=== PATIENT | male | born 1940 | race Caucasian/White ===

== ENCOUNTER 2017-06-24 13:49 | Inpatient (IN) | payer OTHER ==
[~2017-06-24] VITALS: Ht 149.9 cm; Wt 74.8 kg
[~2017-06-24 13:49] MED LIST: CALCIUM; DARVOCET; NAPROXEN
[2017-06-24 13:55] VITALS: BP 95/53
[2017-06-24] MEDS ORDERED: VANCOMYCIN 1,000 MG in DEXTROSE 5% 250 ML IV ONE (14:00)
[2017-06-24] MEDS ORDERED: NACL 0.9% 1,000 ML IV ONE ×3 (14:00→18:25)
[2017-06-24] MEDS ORDERED: LEVOFLOXACIN 500 MG/D5W PREMIX 100 ML IV ONE (14:00)
--- NOTE | 2017-06-24 14:00 | NUR ---
PT AMBULATED TO OF AWAITING OPEN BED; APPLIED O2 VIA NC D/T O2 SATURATION 89% ON ROOM AIR; PT STATES NO PAIN OR SOB AT THIS TIME; ER MD DR. SHAFER NOTIFIED.
[2017-06-24 14:40] LABS: HEMOGLOBIN 14.4 g/dL (12.0-18.0); MEAN CORPUSCULAR HEMOGLOBIN 31 pg (27-31); MEAN CORPUSCULAR HGB CONC 33 g/dL (33-37); MEAN CORPUSCULAR VOLUME 94 fL (80-94); RED BLOOD CELL COUNT(AUTO) 4.67 MIL/uL (4.20-6.10); RED CELL DISTRIBUTION WIDTH 12.8 % (11.6-13.7)
--- NOTE | 2017-06-24 14:43 | NUR ---
77M BIB FRIEND C/O SORE THROAT, COUGH, CHILLS, BODY ACHES X 4 DAYS. PER PT AND FRIEND, PROBLEM WITH BLOOD (PT UNSURE OF CONDITION). PT REPORTS COLD SYMPTOMS AND HAS A MOIST COUGH. NO PHLEGM PRESENT UPON ASSESSMENT. BILATERAL CRACKLES IN LOWER LOBES. FISTULA NOTED ON LEFT FOREARM. WHEN ASKED ABOUT DIALYSIS, PT SAID "YES DIALYSIS". PT IS FLUSHED AND WARM TO THE TOUCH. DENIES CHILLS, N/V/D. PT DENIES PAIN. PT HEART RATE AT 137 ON MONITOR. PT DENIES ABD PAIN. A&O X 4. [facility] INTACT. CMS INTACT. ER MD SHAFER NOTIFIED. SAFETY PRECAUTIONS IN PLACE. PT NEEDS MET AT THIS TIME. WILL CONTINUE TO MONITOR.
--- NOTE | 2017-06-24 14:43 | NUR ---
PT MOVED TO BED 1
[2017-06-24 14:58] LABS: PLATELET COUNT (AUTO) 11 K/uL (140-450)
[2017-06-24 14:59] LABS: LYMPHOCYTES % (MANUAL) 27 % (20-46)
[2017-06-24] MEDS ORDERED: VANCOMYCIN 1,000 MG VIAL ONE (15:01)
[2017-06-24 15:09] LABS: ALBUMIN 3.3 g/dL (3.4-5.0); ANION GAP 14.7 (8-16); ASPARTATE AMINOTRANSFERASE 23 U/L (15-37); CARBON DIOXIDE 24.5 mmol/L (21-32); CHLORIDE 99 mmol/L (98-107); CREATININE 1.2 mg/dL (0.7-1.3); GLUCOSE 157 mg/dL (74-106); POTASSIUM 3.2 mmol/L (3.5-5.1); SODIUM SERUM 135 mmol/L (136-145); TOTAL BILIRUBIN 0.9 mg/dL (0.0-1.0); UREA NITROGEN, BLOOD 12 mg/dL (7-18)
[2017-06-24] MEDS ORDERED: NACL 0.9% 500 ML IV ONE (15:30)
--- NOTE | 2017-06-24 15:32 | NUR ---
JENNY DAUGHTER [phone]
[2017-06-24 15:38] LABS: APPEARANCE,URINE HAZY (CLEAR); BILIRUBIN,URINE NEGATIVE (NEGATIVE); BLOOD, URINE 3+ (NEGATIVE); COLOR,URINE YELLOW (YELLOW); LEUKOCYTE ESTERASE ,URINE NEGATIVE (NEGATIVE); NITRITE, URINE NEGATIVE (NEGATIVE); UGLUCOSE NEGATIVE (NEGATIVE)
[2017-06-24 16:03] LABS: RBC,URINE 20-50 /HPF (0-5); YEAST,URINE Few /HPF (None Seen)
--- NOTE | 2017-06-24 16:16 | NUR ---
Patient being reevaluated by DR SHAFER at bedside.
--- NOTE | 2017-06-24 16:34 | NUR ---
SPOKE TO JENNY. PT DTR. SHE REPORTED THAT PT HAS BEEN TAKING METFORMIN 500 MG QD AND ELIQUIS 5 MG 2 X PER DAY. REPORTS PT HAD KNEE SURGERY. PER DTR, NO FISTULA IN LEFT FOREARM. DOES NOT KNOW PAST MEDICAL DX. ER MD SHAFER NOTIFIED. WILL CONTINUE TO MONITOR.
[2017-06-24] MEDS ORDERED: METF500T PO (16:38)
[2017-06-24] MEDS ORDERED: APIX5TAB PO (16:38)
[2017-06-24] MEDS ORDERED: HYDROcodone/APAP 7.5/325 MG 1 TAB PO PRN (16:55)
[2017-06-24] MEDS ORDERED: ONDANSETRON 4 MG/2 ML VIAL IVP PRN (16:55)
[2017-06-24] MEDS ORDERED: ACETAMINOPHEN 325 MG TAB PO PRN (16:55)
[2017-06-24] MEDS ORDERED: ALBUTEROL SULFATE/IPRATROPIU 3 ML SOL IH PRN (17:00)
--- NOTE | 2017-06-24 17:05 | NUR ---
PT TRANSFERRED TO ICU FROM ER VIA GURNEY. PT IS ALERT AND ORIENTED X 4, ABLE TO MAKE NEEDS KNOWN AND FOLLOWS COMMANDS, NEPALI SPEAKING. PT IS AFEBRILE. NO C/O PAIN OR DISCOMFORT. A. FIB ON MONITOR. S1 +S2 HEARD. PT IS ON O2 AT 3 LPM/NC. NO SOB NOTED. BREATHING EVEN AND UNLABORED. LUNGS SOUND COARSE BILATERALLY. PERIPHERAL IV G 20 TO RIGHT AC ASYMPTOMATIC, PATENT AND INTACT. ABDOMEN ROUND, NONTENDER, NON DISTENDED W/ ACTIVE BOWEL SOUNDS. PT IS CONTINENT BLADDER AND BOWEL. SKIN INTACT, DRY AND WARM. OLD SCAR TO RIGHT KNEE NOTED. NO EDEMA. PULSES PALPABLE TO ALL EXTREMITIES. SCDS IN PLACE FOR VTE PROPHYLAXIS. BED IN LOWEST POSITION AND CALL LIGHT WITHIN REACH. WILL CONTINUE TO MONITOR.
--- NOTE | 2017-06-24 17:10 | NUR ---
Patient will be admitted to care of DR OSBORNE. Admited to TELE. Will go to room 1CU8. Belongings list completed. Report to ANNIE SUH.
[2017-06-24] MEDS ORDERED: DILTIAZEM 30 MG TAB PO ONE (17:15)
--- NOTE | 2017-06-24 17:30 | NUR ---
PT SEEN AND EXAMINED BY DR. CLEVELAND. WILL FOLLOW UP ON ORDERS.
[2017-06-24] MEDS ORDERED: DILTIAZEM 25 MG/5 ML VIAL IVP SCH (17:36)
[2017-06-24] MEDS ORDERED: LABETALOL 100 MG/20 ML VIAL IV SCH (17:40)
[2017-06-24 18:00] VITALS: BP 84/64
--- NOTE | 2017-06-24 18:10 | NUR ---
DR. CLEVELAND IS AWARE OF PT'S LOW BP 84/64. WILL FOLLOW UP ON ORDERS.
[2017-06-24 18:15] LABS: AMYLASE 48 U/L (25-115); CHOL/HDL RATIO 2.5 (1-4.5); HDL CHOLESTEROL 49 mg/dL (40-60); LDL (CALC) 54 mg/dL (60-100); LIPASE 136 U/L (73-393); MAGNESIUM 1.3 mg/dL (1.8-2.4); PHOSPHORUS 2.9 mg/dL (2.5-4.9); THYROID STIMULATING HORMONE 2.04 uIU/mL (0.34-3.74); TRIGLYCERIDES 99 mg/dL (30-150)
--- NOTE | 2017-06-24 18:20 | NUR ---
FAMILY AT BEDSIDE. NO C/O PAIN, DISCOMFORT, NO ACUTE DISTRESS NOTED AT THIS TIME.
[2017-06-24] MEDS: ALBUTEROL SULFATE/IPRATROPIU 3 ML SOL IH SCH (18:52)
[2017-06-24] MEDS ORDERED: methylPREDNISolone SS 125 MG/2 ML VIAL IVP ONE (19:00)
[2017-06-24] MEDS ORDERED: MAG SULF 2000 MG/WATER PREMIX 50 ML IV ONE ×2 (19:05→19:43)
--- NOTE | 2017-06-24 19:29 | NUR ---
REPORT RECEIVED FROM MORNING RN. PT IS A&OX4. ITALIAN SPEAKING. O2 VIA NC @2L/MIN. BILATERAL LUNGS SOUND WITH CRACKLES AND DIMINISHED IN THE LOWER LOBES. RR EVEN AND UNLABORED. BOWEL SOUNDS ACTIVE. RIGHT AC 20G PERIPHERAL IV INTACT AND ASYMPTOMATIC. AFIB ON CONTINUOUS RN SCHOOL. CAP REFILL WITHIN 3 SEC. DENIES CHEST PAIN OR DISCOMFORT. PT CAN MOVE AND REPOSITION WITHOUT DIFFICULTY. URINAL AT BED SIDE. PT WAS EDUCATED W/ THE USE OF THE URINAL AND CALL LIGHT SYSTEM TO CALL THE NURSE FOR ASSISTANCE. AFEBRILE. DENIES PAIN OR DISCOMFORT. CALL LIGHT IN REACH. HOB ELEVATED TO 30 DEGREES. BED KEPT TO THE LOWEST POSITION. WILL CONTINUE TO MONITOR.
[2017-06-24] MEDS: NACL 0.9% 1,000 ML IV SCH (19:30)
--- NOTE | 2017-06-24 19:30 | NUR ---
REPORT GIVEN TO CIGAR PACKER AND GRADER RN FOR CONTINUITY OF CARE. PT IS IN STABLE CONDITION.
[2017-06-24 19:44] LABS: BARBITURATE, URINE NEG. ng/ml (NEG <=200); BENZODIAZEPINE, URINE NEG. ng/mL (NEG <=200); CANNABINOID, URINE NEG. ng/mL (NEG <=50); COCAINE, URINE NEG. ng/mL (NEG <=300); OPIATE, URINE NEG. ng/mL (NEG <=2000); PHENCYCLIDINE SCREEN,URINE NEG. ng/mL (NEG <=25)
--- NOTE | 2017-06-24 19:50 | NUR ---
MG NOTED 1.7. [facility]IGHT [facility] CLOSED AT THIS TIME TO VERIFY. CHARGE AWARE TO OVERWRITE THE MED. MED BEING ADMINISTERED AT THIS TIME.
[2017-06-24 20:00] VITALS: BP 95/82
[2017-06-24] MEDS ORDERED: KCL 20 MEQ/WATER INJ PREMIX 200 ML IV ONE (20:03)
--- NOTE | 2017-06-24 20:03 | NUR ---
NEW PERIPHERAL LINE OBTAINED FROM LEFT HAND 20G. POSITIVE BLOOD RETURN AND FLUSHES WELL. K RIDER HAS STARTED TO LEFT HAND IV ORDERED. [facility]IGHT [facility]ARM[facility]Y NOT AVAILABLE TO VERIFY. CHARGE NURSE MADE AWARE TO OVERWRITE. K RIDER BEING ADMINISTERED.
--- NOTE | 2017-06-24 20:11 | NUR ---
1919 SPUTUM WAS UPTAINED AND SENT TO LAB
--- NOTE | 2017-06-24 20:12 | NUR ---
DR. ABREU IN TO SEE PT. UPDATED WITH HIM ABOUT PT'S CONDITION INCLUDING BP=95/82. DR. ABREU MADE AWARE OF K RIDER AND MG IV ARE BEING ADMINISTERED. PT IS A&O AND ABLE TO FOLLOW COMMANDS. DR. ABREU SAID TO CONTINUE TO MONITOR.
[2017-06-24] MEDS: CLINDAMYCIN 600 MG in DEXTROSE 5% 50 ML IV SCH (20:23)
[2017-06-24] MEDS: DOCUSATE SODIUM 100 MG GELCAP PO SCH (20:24)
--- NOTE | 2017-06-24 20:35 | NUR ---
DR. ABREU MADE AWARE OF LOPRESSOR NOT GIVEN DUE TO LOW BP.
--- NOTE | 2017-06-24 20:40 | NUR ---
2 RT'S AT BED SIDE FOR ABG SAMPLE. PT IN BED WITH LOWEST POSITION. CALL LIGHT IN REACH. HOB ELEVATED 30 DEGREES. NO ACUTE DISTRESS NOTED.
--- NOTE | 2017-06-24 20:50 | NUR ---
HEARD A COMMOTION FROM ICU BED 8. WENT IMMEDIATELY TO THE ROOM AND SAW ONE RT AT BED SIDE AND PT SITTING ON HIS BOTTOM AGAINST THE WALL ON THE RIGHT SIDE OF THE BED, FACING THE DOOR. IV POLE LYING ACROSS ON THE BED. RT STANDING NEXT TO THE PT UPON ENTERING THE ROOM. RIGHT SIDE OF THE IV, HUB FROM ONE OF THE Y TUBINGS DISCONNECTED AND BLOOD OOZING OUT OF THE LINE. IMMEDIATELY KINKED THE LINE. FLUSHED WITH NS AND CLOSE THE LINE. RIGHT AC IV SITE INTACT. LEFT HAND IV SITE INTACT. RT STATED THAT HE WAS TRYING TO OBTAIN ABG AND THE PT WANTED TO USE THE URINAL. RT FURTHER STATED THAT PT WENT TO THE EDGE OF THE BED AND TRIED TO STAND UP BUT SLED DOWN FROM THE BED AND SAT ON THE BOTTOM. PT DENIES ANY PAIN AND DENIES HITTING HIS HEAD. NEURO CHECK DONE AND NO CHANGE NOTED. PT ABLE TO MOVE ALL EXTREMITIES WITHOUT DIFFICULTY. RIGHT UPPER LATERAL THIGH AREA NOTED WITH SMALL ROUND BUMP AROUND 2X2. SKIN INTACT. PT DOES NOT REMEMBER HITTING IT ANYWHERE. NO OPEN AREA NOTED. VS STABLE. WILL CONTINUE TO MONITOR.
[2017-06-24 20:53] VITALS: BP 109/80
[2017-06-24 20:55] VITALS: BP 104/80
--- NOTE | 2017-06-24 20:55 | NUR ---
DR. ABREU MADE AWARE OF FALL INCIDENT. DR. ABREU WILL COME AND EVALUATE THE PT.
[2017-06-24] MEDS ORDERED: METOPROLOL 25 MG TAB PO SCH (21:00)
[2017-06-24] MEDS ORDERED: NON-FORMULARY ITEM (Apixaban (Eliquis) 5 MG) PO SCH (21:00)
[2017-06-24] MEDS ORDERED: APIXABAN 2.5 MG TAB PO SCH (21:00)
[2017-06-24] MEDS ORDERED: POTASSIUM CHLORIDE 20% 40 MEQ/15 ML UDC PO SCH (21:00)
--- NOTE | 2017-06-24 21:40 | NUR ---
DR. ABREU IN TO EVALUATE PT S/P FALL AT THIS TIME. INFORMED DR. ABREU OF K RIDER ORDER NOT IN BUT INSTEAD KCL PO IS SHOWING. DR. ABREU SAID K RIDER ORDER IS THE RIGHT ONE AND WILL DC THE PO ORDER. DR. ABREU MADE AWARE OF K-RIDER IV RUNNING.
[2017-06-24 22:00] VITALS: BP 99/82
[2017-06-24] MEDS ORDERED: KCL 20 MEQ/WATER INJ PREMIX 200 ML IV SCH (22:00)
--- NOTE | 2017-06-24 23:10 | NUR ---
X RAY AT BED SIDE.
[2017-06-25] VITALS (9 sets, daily range): BP systolic 94–119; BP diastolic 50–77
--- NOTE | 2017-06-25 01:08 | NUR ---
PT SLEEPING AT THIS TIME. VS STABLE. ALL SAFETY PRECAUTIONS ARE IN PLACE.
--- NOTE | 2017-06-25 03:17 | NUR ---
PT DENIES ANY PAIN OR DISCOMFORT. VS STABLE. AFIB ON CONTINUOS CAR ATTENDANT. BED KEPT TO THE LOWEST. CALL LIGHT IN REACH. HOB ELEVATED TO 30 DEGREES. WILL CONTINUE TO MONITOR.
[2017-06-25] MEDS: CLINDAMYCIN 600 MG in DEXTROSE 5% 50 ML IV SCH ×3 (04:12→20:41)
--- NOTE | 2017-06-25 05:00 | NUR ---
PT SLEEPING. NO S/SX OF DISTRESS NOTED. WILL CONTINUE TO MONITOR.
[2017-06-25] MEDS ORDERED: LEVOFLOXACIN 750 MG/D5W PREMIX 150 ML IV ONE (05:30)
[2017-06-25] MEDS: LEVOFLOXACIN 750 MG/D5W PREMIX 150 ML IV SCH (05:35)
--- NOTE | 2017-06-25 06:25 | NUR ---
ASSISTED WITH MORNING CARE WITH STAND BY ASSIST. PT DENIES ANY PAIN OR DISCOMFORT. VS STABLE. WILL CONTINUE TO MONITOR.
--- NOTE | 2017-06-25 07:23 | NUR ---
REPORT GIVEN TO MORNING NURSEGELA RN FOR CONTINUITY OF CARE. VS STABLE. ALL SAFETY PRECAUTIONS ARE IN PLACE.
[2017-06-25] MEDS: ALBUTEROL SULFATE/IPRATROPIU 3 ML SOL IH SCH ×3 (07:33→19:25)
[2017-06-25 07:34] LABS: BASOPHILS # (AUTO) 0.1 K/uL (0.00-0.22); BASOPHILS % (AUTO) 2.4 % (0.0-2.0); EOSINOPHILS # (AUTO) 0.1 K/uL (0-0.4); EOSINOPHILS % (AUTO) 1.7 % (0.0-4.0); HEMATOCRIT 36.3 % (36-52); LYMPHOCYTES # (AUTO) 0.9 K/uL (2.0-11.5); LYMPHOCYTES % (AUTO) 14.4 % (20.5-51.1); MEAN CORPUSCULAR HEMOGLOBIN 32 pg (27-31); MEAN CORPUSCULAR HGB CONC 33 g/dL (33-37); MEAN CORPUSCULAR VOLUME 95 fL (80-94); MONOCYTES # (AUTO) 0.2 K/uL (0.8-1.0); NEUTROPHILS # (AUTO) 4.7 K/uL (1.8-7.7); NEUTROPHILS % (AUTO) 78.5 % (42.2-75.2); RED CELL DISTRIBUTION WIDTH 13.2 % (11.6-13.7)
[2017-06-25 07:41] LABS: PLATELET COUNT (AUTO) 10 K/uL (140-450)
--- NOTE | 2017-06-25 08:00 | NUR ---
Patient is awake and alert, oriented x 4. He is English speaking, and does understand some Sinhala. Atrial fib on monitor, HR 110 apical pulse. He has a small hematoma palpable, no other skin breakdown. No co pain. Damian Ortiz RN
[2017-06-25 08:37] LABS: ANION GAP 14.9 (8-16); CARBON DIOXIDE 21.9 mmol/L (21-32); CHLORIDE 107 mmol/L (98-107); CREATININE 0.7 mg/dL (0.7-1.3); GLUCOSE 157 mg/dL (74-106); POTASSIUM 3.8 mmol/L (3.5-5.1); SODIUM SERUM 140 mmol/L (136-145); UREA NITROGEN, BLOOD 10 mg/dL (7-18)
[2017-06-25 08:50] LABS: PHOSPHORUS 2.8 mg/dL (2.5-4.9)
[2017-06-25] MEDS: LACTOBACILLUS RHAMNOSUS GG 1 EACH CAP PO SCH (09:04)
[2017-06-25] MEDS: DOCUSATE SODIUM 100 MG GELCAP PO SCH ×2 (09:05→20:41)
[2017-06-25] MEDS: NACL 0.9% 1,000 ML IV SCH ×2 (09:07→19:50)
--- NOTE | 2017-06-25 09:30 | NUR ---
Patient platlet level low, and he will be receiving blood-platlets. Did explain the procedure to patient with Ukrainian speaking phlebotimist at bedside. Patient understands information received, however wants to confer with when she comes before consent obtained. Damian Ortiz RN
--- NOTE | 2017-06-25 09:50 | NUR ---
RT RILEY NOTIFIED OF NEED FOR ANOTHER SPUTUM SPECIMEN FOR CULTURE.
[2017-06-25] MEDS: DILTIAZEM 30 MG TAB PO SCH ×2 (10:33→20:42)
--- NOTE | 2017-06-25 13:18 | NUR ---
TOLERATED INCENTIVE SPIROMETRY THERAPY WELL WITHOUT ADVERSE REACTIONS NOTED ENCOURAGED PATIENT WITH ACKNOWLEDGEMENT TO USE EVERY 1-2 HOURS WHILE AWAKE
[2017-06-25] MEDS: methylPREDNISolone SS 125 MG/2 ML VIAL IVP SCH ×2 (13:39→20:42)
--- NOTE | 2017-06-25 15:28 | NUR ---
CM NOTE INITIAL REVIEW FAXED TO [facility] / FAX# [phone], C: [phone]
--- NOTE | 2017-06-25 15:52 | NUR ---
PLATELET PHERESIS STARTED AT 60 ML/HR X 15 MIN. VIA RT AC IV SITE. FOLLOWED BY 150 ML/HR ( TO INFUSE OVER 1 HR).
--- NOTE | 2017-06-25 17:05 | NUR ---
PLATELET TRANSFUSED WITHOUT UNTOWARD REACTION.
--- NOTE | 2017-06-25 17:30 | NUR ---
at bedside visiting with patient, and giving privacy for family to visit. Patient with no co pain. Patient is voiding. He can reposition himself in bed. Damian Ortiz RN
[2017-06-25 19:14] LABS: BASOPHILS # (AUTO) 0.1 K/uL (0.00-0.22); BASOPHILS % (AUTO) 1.3 % (0.0-2.0); EOSINOPHILS # (AUTO) 0.1 K/uL (0-0.4); EOSINOPHILS % (AUTO) 0.7 % (0.0-4.0); HEMATOCRIT 33.8 % (36-52); HEMOGLOBIN 11.2 g/dL (12.0-18.0); LYMPHOCYTES # (AUTO) 0.5 K/uL (2.0-11.5); LYMPHOCYTES % (AUTO) 5.3 % (20.5-51.1); MEAN CORPUSCULAR HEMOGLOBIN 31 pg (27-31); MEAN CORPUSCULAR HGB CONC 33 g/dL (33-37); MEAN CORPUSCULAR VOLUME 94.8 fL (80-94); MONOCYTES # (AUTO) 0.4 K/uL (0.8-1.0); MONOCYTES % (AUTO) 3.8 % (1.7-9.3); NEUTROPHILS # (AUTO) 8.2 K/uL (1.8-7.7); NEUTROPHILS % (AUTO) 88.9 % (42.2-75.2); PLATELET COUNT (AUTO) 51 K/uL (140-450); RED BLOOD CELL COUNT(AUTO) 3.57 MIL/uL (4.20-6.10); RED CELL DISTRIBUTION WIDTH 12.9 % (11.6-13.7); WHITE BLOOD COUNT (AUTO) 9.3 K/uL (4.8-10.8)
--- NOTE | 2017-06-25 19:30 | NUR ---
RECEIVED REPORT FROM ANNIE LANCE FOR CONTINUITY OF CARE. VS STABLE AT THIS TIME. PT AWAKE, ALERT AND ORIENTED. ABLE TO MAKE NEEDS KNOWN. ONLY SPEAKS THAI. PT AFEBRILE. ABLE TO FOLLOW COMMANDS. S1+S2 HEARD. PULSES ARE PALPABLE IN ALL EXTREMITIES. PT ON SEEING EYE DOG TRAINER. ATRIAL FIBRILLATION RHYTHM. LUNG SOUNDS COARSE. PT DENIES ANY DIFFICULTY IN BREATHING. PT ON OXYGEN AT 2L/MIN VIA NC. ABDOMEN ROUND, SOFT AND NONDISTENDED. PT DENIES ANY DIFFICULTY SWALLOWING. SCD IN PLACE. PT HAS PERIPHERAL IV ON LEFT HAND 20G AND RIGHT AC 20G. LINES ARE PATENT, INTACT,AND ASYMPTOMATIC. PT ABLE TO USE URINAL. BED AT LOW POSSIBLE POSITION. ALL SAFETY PRECAUTIONS ARE IN PLACE. CALL LIGHT WITHIN REACH. WILL CONTINUE TO MONITOR PT.
--- NOTE | 2017-06-25 19:37 | NUR ---
RECEIVED PT ON ROOM AIR SP02 @ 97%. HHN TX TOLERATED. LEFT PT ON ROOM AIR PT'S SP02 IS 97%
--- NOTE | 2017-06-25 19:40 | NUR ---
INFORMED PT THAT WE NEED ANOTHER SPUTUM SAMPLE. PT FULLY UNDERSTANDS. TRANSLATED BY RT ALFARO. CUP LEFT AT BEDSIDE. RN AWARE.
--- NOTE | 2017-06-25 22:34 | NUR ---
DR. ANTHONY AT BEDSIDE TO SEE PT. PER DR. ANTHONY REHECK PLATELETS IN THE AM.
[2017-06-26] VITALS: BP 123/63
--- NOTE | 2017-06-26 01:34 | NUR ---
VS STABLE AT THIS TIME. CURRENTLY NO CHANGE IN CONDITION. PT SLEEPING. PT DOES NOT APPEAR TO BE IN ANY PAIN OR IN ANY SIGNS OF DISTRESS. PT HAS URINAL AT BEDSIDE. PT USES INCENTIVE SPIROMETER WHEN AWAKE. PT AFIB ON MONITOR. WILL CONTINUE TO MONITOR PT.
--- NOTE | 2017-06-26 02:40 | NUR ---
PT CURRENTLY ASLEEP. HAS AN ORDER FOR CT SCAN, WILL BRING PT FOR CT SCAN BEFORE END OF SHIFT. RADIOLOGY DEPARTMENT AWARE.
--- NOTE | 2017-06-26 03:45 | NUR ---
PT SHOWING THAT HIS CELLPHONE'S SCREEN IS BROKEN. DID NOT HEARD OR SAW ANYTHING THAT CONTRIBUTED TO IT HAPPENING.
[2017-06-26 04:00] VITALS: BP 113/80
--- NOTE | 2017-06-26 04:45 | NUR ---
TAKEN PT TO RADIOLOGY DEPARTMENT FOR CT SCAN. PT TOLERATED BEING TRANSPORTED WELL. NO SIGNS OF DISTRESS NOTED. PT STATES THAT HE IS FEEDING GOOD. NO C/O PAIN OR ANY DISCOMFORTS. WILL CONTINUE TO MONITOR PT.
[2017-06-26] MEDS: CLINDAMYCIN 600 MG in DEXTROSE 5% 50 ML IV SCH ×3 (05:47→22:05)
[2017-06-26] MEDS: methylPREDNISolone SS 125 MG/2 ML VIAL IVP SCH (05:47)
[2017-06-26] MEDS: LEVOFLOXACIN 750 MG/D5W PREMIX 150 ML IV SCH (06:36)
[2017-06-26] MEDS: ALBUTEROL SULFATE/IPRATROPIU 3 ML SOL IH SCH ×3 (07:05→18:58)
--- NOTE | 2017-06-26 07:07 | NUR ---
REPORT GIVEN TO ANNIE ANGELO FOR CONTINUITY OF CARE. PT IN STABLE CONDITION AT THIS TIME.
--- NOTE | 2017-06-26 07:09 | NUR ---
RECEIVED REPORT FROM MOTEL FRONT DESK CLERK RNCANDELARIO FOR CONTINUITY OF CARE. PATIENT IS AAOX4, ABLE TO FOLLOW COMMANDS AND MAKES NEEDS KNOWN. PATIENT IS OBSERVED RESTING AT THIS TIME, SKIN IS WARM AND DRY, HE HAS PERIPHERAL SITE TO LEFT HAND AND RIGHT AC, BOTH ASYMPTOMATIC, INTACT AND PATENT. PATIENT HAS O2 NASAL CANNULA AT 2L, LUNG SOUNDS ARE COARSE. AFIB ON MONITOR, CAP REFILL LESS THAN 3 SECS. CALL LIGHT WITHIN REACH, HOB IS ELEVATED TO 30 DEGREES IN LOW POSITION. NO SIGNS OF DISTRESS NOTED. WILL MONITOR CLOSELY.
[2017-06-26 08:00] VITALS: BP 113/80
--- NOTE | 2017-06-26 08:04 | NUR ---
[facility] PHYSICIANS AND DR. HAIRSTON AT BEDSIDE, UPDATED ON PATIENT'S CONDITION. WILL FOLLOW UP ON ANY ORDERS.
[2017-06-26] MEDS: DOCUSATE SODIUM 100 MG GELCAP PO SCH ×2 (08:27→22:07)
[2017-06-26] MEDS: DILTIAZEM 30 MG TAB PO SCH ×2 (08:27→22:07)
[2017-06-26] MEDS: LACTOBACILLUS RHAMNOSUS GG 1 EACH CAP PO SCH (08:27)
[2017-06-26 08:30] LABS: BASOPHILS # (AUTO) 0.2 K/uL (0.00-0.22); BASOPHILS % (AUTO) 1.5 % (0.0-2.0); EOSINOPHILS % (AUTO) 0.1 % (0.0-4.0); HEMATOCRIT 36.9 % (36-52); HEMOGLOBIN 12.3 g/dL (12.0-18.0); LYMPHOCYTES # (AUTO) 1.2 K/uL (2.0-11.5); LYMPHOCYTES % (AUTO) 10.4 % (20.5-51.1); MEAN CORPUSCULAR HEMOGLOBIN 32 pg (27-31); MEAN CORPUSCULAR HGB CONC 33 g/dL (33-37); MEAN CORPUSCULAR VOLUME 95.2 fL (80-94); MONOCYTES # (AUTO) 0.3 K/uL (0.8-1.0); MONOCYTES % (AUTO) 2.8 % (1.7-9.3); NEUTROPHILS # (AUTO) 9.9 K/uL (1.8-7.7); NEUTROPHILS % (AUTO) 85.2 % (42.2-75.2); PLATELET COUNT (AUTO) 58 K/uL (140-450); RED BLOOD CELL COUNT(AUTO) 3.87 MIL/uL (4.20-6.10); WHITE BLOOD COUNT (AUTO) 11.6 K/uL (4.8-10.8)
[2017-06-26 08:59] LABS: ANION GAP 15.6 (8-16); CARBON DIOXIDE 23.5 mmol/L (21-32); CHLORIDE 104 mmol/L (98-107); CREATININE 0.8 mg/dL (0.7-1.3); GLUCOSE 196 mg/dL (74-106); POTASSIUM 3.1 mmol/L (3.5-5.1); SODIUM SERUM 140 mmol/L (136-145); UREA NITROGEN, BLOOD 13 mg/dL (7-18)
[2017-06-26 09:03] LABS: MAGNESIUM 1.8 mg/dL (1.8-2.4)
--- NOTE | 2017-06-26 09:23 | NUR ---
FAXED CONCURRENT REVIEW TO [phone] JENNIFER [phone].
[2017-06-26 10:06] LABS: PHOSPHORUS 2.4 mg/dL (2.5-4.9)
--- NOTE | 2017-06-26 11:09 | NUR ---
GAVE REPORT TO [facility] RNGUY FOR CONTINUITY OF CARE.
--- NOTE | 2017-06-26 11:10 | NUR ---
RECEIVED REPORT FROM ICU NURSE. PATIENT ABLE TO AMBULATE FROM WHEELCHAIR TO [facility] BED WITH ASSISTANCE AND SUPERVISION. NO DISTRESS NOTED. DENIES ANY PAIN AT THIS TIME. RESPIRATIONS EVEN, UNLABORED, ON O2 2L/MIN VIA NC. AAOX4, CALM, COOPERATIVE, SKIN COLOR APPROPRIATE TO ETHNICITY, WARM TO TOUCH. SKIN INTACT. LUNGS WHEEZING ON ALL LOBES. ABDOMEN SOFT, NON-DISTENDED. REVIEWED PLAN OF CARE WITH PATIENT. PATIENT VERBALIZED UNDERSTANDING. SAFETY MEASURES IN PLACE, CALL LIGHT WITHIN REACH, FALL PREVENTIONS IN PLACE. WILL CONTINUE TO MONITOR.
[2017-06-26 11:30] VITALS: BP 101/67
[2017-06-26] MEDS ORDERED: POTASSIUM CHLORIDE 40 MEQ, LIDOCAINE 1% 25 MG in NACL 0.9% 250 ML IV SCH (13:45)
[2017-06-26] MEDS: methylPREDNISolone SS 40 MG/ML VIAL IVP SCH ×2 (13:54→22:06)
[2017-06-26] MEDS: NACL 0.9% 1,000 ML IV SCH ×3 (13:54→20:50)
--- NOTE | 2017-06-26 14:00 | NUR ---
PATIENT SITTING IN BED TALKING WITH FAMILY MEMBERS AT BEDSIDE. NO DISTRESS NOTED. DENIES ANY PAIN. SCHEDULED MEDICATIONS DUE GIVEN. SAFETY MEASURES IN PLACE, CALL LIGHT WITHIN REACH, FALL PRECAUTIONS IN PLACE, WILL CONTINUE TO MONITOR.
--- NOTE | 2017-06-26 14:11 | NUR ---
06/26/2017 RD INITIAL ASSESSMENT COMPLETED PLEASE REFER TO NUTRITION ASSESSMENT UNDER CARE ACTIVITY FOR ESTIMATED NUTRITIONAL NEEDS. RECOMMENDED CHANGE IN DIET TO 60 GMS CCHO. ENCOURAGE INCREASED PO INTAKE TOLERATED. RD TO FOLLOW-UP IN 3-5 DAYS PATIENT IS MODERATE RISK. DIPAK YAN, RD
[2017-06-26 16:00] VITALS: BP 95/68
--- NOTE | 2017-06-26 16:06 | NUR ---
PATIENT LYING DOWN IN BED SLEEPING, AROUSABLE BY VOICE. NO DISTRESS NOTED. DENIES ANY PAIN AT THIS TIME. RESPIRATIONS EVEN, UNLABORED, ON ROOM AIR. SAFETY MEASURES IN PLACE, CALL LIGHT WITHIN REACH. WILL CONTINUE TO MONITOR.
--- NOTE | 2017-06-26 17:46 | NUR ---
PATIENT SITTING IN BED WATCHING TV. NO DISTRESS NOTED. DENIES ANY PAIN AT THIS TIME. CONDITION UNCHANGED. RESPIRATORY THERPAIST CHANGED O2 FROM 2L/MIN TO 1L/MIN VIA NC. O2 SAT IS 95% WITH 1L/MIN VIA NC. SAFETY MEASURES IN PLACE, CALL LIGHT WITHIN REACH. WILL CONTINUE TO MONITOR.
--- NOTE | 2017-06-26 19:30 | NUR ---
GAVE REPORT TO SILVER HOLLOWARE ASSEMBLER NURSE FOR CONTINUITY OF CARE. PATIENT IN STABLE CONDITION.
--- NOTE | 2017-06-26 19:32 | NUR ---
RECEIVED PT FROM GUY VALENCIA PT IS AAOX4 AMBULATORY ON 02 2 LTS VIA NC NOT SOB NOTED IV ON LEFT HAND INFUSING WELL RT AC HL PATENT ON TELEMETRY CONTROLLED AFIB INITIAL ASSESSMENT DONE
[2017-06-26 20:00] VITALS: BP 131/88
--- NOTE | 2017-06-26 22:00 | NUR ---
PT RESTING ON BED NOT DISTRESS NOTED IV ON LEFT HAND INFUSING WELL ON TELEMETRY CONTROLLED AFIB REPOSITIONED
[2017-06-26] MEDS: SODIUM PHOS / POTASSIUM PHOS 1 PKT PDR PO SCH (22:08)
[2017-06-27] VITALS: BP 100/76
--- NOTE | 2017-06-27 01:30 | NUR ---
PT VOIDING WELL GETTING SLEEP ON TELE CONTROLLED AFIB DENIES ANY PAIN NOT SOB NOTED
[2017-06-27 04:00] VITALS: BP 114/85
--- NOTE | 2017-06-27 04:46 | NUR ---
PTSLEEPING WELL NOT DISTRESS NOTE ON TELEMETRY CONTROLLED AFIB ON 05 08 LTS VIA NC
[2017-06-27] MEDS: methylPREDNISolone SS 40 MG/ML VIAL IVP SCH ×2 (05:09→13:27)
[2017-06-27] MEDS: CLINDAMYCIN 600 MG in DEXTROSE 5% 50 ML IV SCH ×2 (05:10→13:27)
[2017-06-27] MEDS: LEVOFLOXACIN 750 MG/D5W PREMIX 150 ML IV SCH (05:40)
[2017-06-27] MEDS ORDERED: NACL 0.9% 1,000 ML IV ONE ×2 (05:55)
--- NOTE | 2017-06-27 06:24 | NUR ---
PT IS ASSISTED TO THE RESTROOMVOIDING WELL AND HAD ONE BM ,IV N LE HAND INFUSING WELL LEVAQUIN ON TELEMETRY CONTROLLED AFIB
[2017-06-27] MEDS: ALBUTEROL SULFATE/IPRATROPIU 3 ML SOL IH SCH ×2 (06:55→13:09)
--- NOTE | 2017-06-27 07:12 | NUR ---
RECEIVED REPORT FROM K 9 POLICE OFFICER RN. PATIENT IS AAOX4, NO SIGNS AND SYMPTOMS OF ACUTE RESPIRATORY DISTRESS NOTED AT THIS TIME. CURRENTLY RECEIVING BREATHING TREATMENT. HAS IV TO THE LEFT HAND 20G, INFUSING NS AT 80 ML/HR. INFUSING WELL. HAS IV TO RIGHT AC 20G, HEP LOCK AT THIS TIME. PATIENT REQUIRES ASSISTANCE TO AMBULATE TO THE RESTROOM. DISCUSSED PLAN OF CARE WITH PATIENT AND HE VERBALIZED UNDERSTANDING. BED IN LOWEST POSITION, SIDE RIALS UP X2, CALL LIGHT WITHIN REACH. WILL CONTINUE TO MONITOR.
[2017-06-27 07:25] LABS: BASOPHILS # (AUTO) 0.2 K/uL (0.00-0.22); EOSINOPHILS % (AUTO) 0.2 % (0.0-4.0); HEMATOCRIT 34.1 % (36-52); HEMOGLOBIN 11.6 g/dL (12.0-18.0); LYMPHOCYTES # (AUTO) 1.2 K/uL (2.0-11.5); LYMPHOCYTES % (AUTO) 12.7 % (20.5-51.1); MEAN CORPUSCULAR HEMOGLOBIN 32 pg (27-31); MEAN CORPUSCULAR HGB CONC 34 g/dL (33-37); MEAN CORPUSCULAR VOLUME 94.5 fL (80-94); MONOCYTES # (AUTO) 0.4 K/uL (0.8-1.0); MONOCYTES % (AUTO) 4.1 % (1.7-9.3); NEUTROPHILS # (AUTO) 7.4 K/uL (1.8-7.7); RED BLOOD CELL COUNT(AUTO) 3.61 MIL/uL (4.20-6.10); RED CELL DISTRIBUTION WIDTH 13.1 % (11.6-13.7); WHITE BLOOD COUNT (AUTO) 9.2 K/uL (4.8-10.8)
[2017-06-27 07:46] LABS: MAGNESIUM 1.8 mg/dL (1.8-2.4); PHOSPHORUS 3.4 mg/dL (2.5-4.9)
[2017-06-27 08:00] VITALS: BP 130/76
[2017-06-27 08:40] LABS: ANION GAP 14.2 (8-16); CARBON DIOXIDE 24.1 mmol/L (21-32); CHLORIDE 107 mmol/L (98-107); CREATININE 0.8 mg/dL (0.7-1.3); GLUCOSE 152 mg/dL (74-106); POTASSIUM 3.3 mmol/L (3.5-5.1); SODIUM SERUM 142 mmol/L (136-145); UREA NITROGEN, BLOOD 16 mg/dL (7-18)
[2017-06-27] MEDS: LACTOBACILLUS RHAMNOSUS GG 1 EACH CAP PO SCH (09:13)
[2017-06-27] MEDS: SODIUM PHOS / POTASSIUM PHOS 1 PKT PDR PO SCH (09:13)
[2017-06-27] MEDS: DILTIAZEM 30 MG TAB PO SCH (09:14)
[2017-06-27] MEDS: DOCUSATE SODIUM 100 MG GELCAP PO SCH (09:14)
--- NOTE | 2017-06-27 10:00 | NUR ---
PATIENT INFORMED ME THAT ONE OF THE ER DOCTORS ACCIDENTALLY DROPPED HIS CELLPHONE THAT WAS PLACED ON A BEDSIDE TABLE IN THE ER AND THE SCREEN CRACKED.
[2017-06-27 10:42] LABS: PLATELET COUNT (AUTO) 70 K/uL (140-450)
[2017-06-27] MEDS ORDERED: OSC500 PO (11:30)
[2017-06-27] MEDS ORDERED: CAR30 PO (11:30)
[2017-06-27] MEDS ORDERED: ASCO500T45 PO (11:30)
[2017-06-27] MEDS ORDERED: FERR325E14 PO (11:30)
[2017-06-27] MEDS ORDERED: LACT10CA PO (11:30)
[2017-06-27] MEDS ORDERED: CLIN300C2 PO (11:30)
[2017-06-27] MEDS ORDERED: LEVO750T2 PO (11:30)
[2017-06-27] MEDS ORDERED: POTASSIUM CHLORIDE 10 MEQ TABER PO SCH (11:47)
[2017-06-27 12:00] VITALS: BP 128/81
--- NOTE | 2017-06-27 13:31 | NUR ---
PLACED PT ON ROOM AIR SPO2 .97 RN AWARE
--- NOTE | 2017-06-27 15:50 | NUR ---
DISCHARGE ORDER IS IN PLACE. PATIENT IS AAOX4, NO SIGNS AND SYMPTOMS OF ACUTE DISTRESS NOTED AT THIS TIME. GAVE PATIENT INSTRUCTIONS ON DISCHARGE MEDICATIONS, TO MAKE AN APPOINTMENT WITH THE [facility] IN 3-5 DAYS. TO SEEK EMERGENCY MEDICAL ATTENTION FOR S/S OF DISTRESS, OR FEVER. PATIENT VERBALIZED UNDERSTANDING. IV DISCONTINUED AT THIS TIME, IV REMOVED. CATHETER INTACT. ID BANDS REMOVED. ALL BELONGINGS WITH THE PATIENT. WILL WALK OUT WITH HIM.
== END 2017-06-27 15:40 | disposition home or self-care (01) | DRG 871 ==
LOC: MED 13:49 → MIC 16:20 → MTU 06-26 10:57
PROVIDERS: ADMIT Student in an Organized Health Care Education/Training Program; ATTEND Student in an Organized Health Care Education/Training Program
PROC: 30233R1 Transfusion of Nonautologous Platelets into Peripheral Vein, Percutaneous Approach (ICD-10-PCS; principal; 2017-06-25)
DX: A41.9 Sepsis, unspecified organism (principal); J69.0 Pneumonitis due to inhalation of food and vomit; J96.21 Acute and chronic respiratory failure with hypoxia; N17.0 Acute kidney failure with tubular necrosis; J84.9 Interstitial pulmonary disease, unspecified; E11.51 Type 2 diabetes mellitus with diabetic peripheral angiopathy without gangrene; D68.59 Other primary thrombophilia; N39.0 Urinary tract infection, site not specified; E11.69 Type 2 diabetes mellitus with other specified complication; D69.6 Thrombocytopenia, unspecified; E11.65 Type 2 diabetes mellitus with hyperglycemia; E83.42 Hypomagnesemia; I48.2 Chronic atrial fibrillation; R65.20 Severe sepsis without septic shock; E87.6 Hypokalemia; E78.5 Hyperlipidemia, unspecified; I10 Essential (primary) hypertension; F17.210 Nicotine dependence, cigarettes, uncomplicated; E66.9 Obesity, unspecified; I70.202 Unspecified atherosclerosis of native arteries of extremities, left leg; Z68.33 Body mass index [BMI] 33.0-33.9, adult
CPT/HCPCS: 36415; 36600; 71045; 71250; 74150; 80048; 80053; 80305; 81001; 82140; 82150; 82803; 83036; 83605; 83690; 83735; 83880; 84100; 84439; 84443; 84484; 85025; 85610; 85730; 86900; 86901; 87040; 87070; 87081; 87086; 87205; 87804; 89220; 93925; 93970; 94640; 96365; 99291; J1956; J2001; J2920; J2930; J3370; J3475; J3480; J3490; J7030; J7060; J7620; P9035; Q0092

== ENCOUNTER 2018-04-19 08:10 | Emergency (ER) | payer BC, OTHER ==
[~2018-04-19] VITALS: Ht 152.4 cm; Wt 66.7 kg
[~2018-04-19 08:10] MED LIST changes: +APIX5TAB PO; +ASCO500T45 PO; -CALCIUM; +CAR30 PO; +CLIN300C2 PO; -DARVOCET; +FERR325E14 PO; +LACT10CA PO; +LEVO750T2 PO; +METF500T PO; -NAPROXEN; +OSC500 PO
[2018-04-19 08:23] VITALS: BP 110/63
--- NOTE | 2018-04-19 08:35 | NUR ---
PT CAME INTO THE ED W/ DUE TO SOB, AND CP. PT. STATES HE IS VERY SHORT OF BREATH HAS BEEN EXPERIENCING X 8 DAYS. PRODUCTIVE COUGH, PT ADMITS TO SMOKING. PT. AWAKE AND ALERT AND ABLE TO SPEAK IN FULL AND COMPLETE SENTENCES. 8/10 INTERMITTENT SHARP CHEST PAIN ON R SIDE OF CHEST THAT IS NON RADIATING. DENIES ANY N/V/D. PT/ STATES " I HAVE BEEN HAVING FEVERS". LS: CLEAR BILAT. O2: 98% 02 VIA 2L NC . ER MD MADE AWARE. HOB ELEVATED TO 90 DEGREES. ER MD MADE AWARE. SAFETY PRECAUTIONS IN PLACE. SKIN WARM AND DRY TO TOUCH.
--- NOTE | 2018-04-19 08:43 | NUR ---
LAB AT BEDSIDE
[2018-04-19 08:53] LABS: BASOPHILS % (AUTO) 0.2 % (0.0-2.0); EOSINOPHILS # (AUTO) 0.2 K/uL (0-0.4); EOSINOPHILS % (AUTO) 3.2 % (0.0-4.0); HEMATOCRIT 45.5 % (36-52); HEMOGLOBIN 15.2 g/dL (12.0-18.0); LYMPHOCYTES # (AUTO) 2.2 K/uL (2.0-11.5); LYMPHOCYTES % (AUTO) 36.7 % (20.5-51.1); MEAN CORPUSCULAR HEMOGLOBIN 32 pg (27-31); MEAN CORPUSCULAR HGB CONC 33 g/dL (33-37); MEAN CORPUSCULAR VOLUME 94.2 fL (80-94); MONOCYTES # (AUTO) 0.5 K/uL (0.8-1.0); MONOCYTES % (AUTO) 7.8 % (1.7-9.3); NEUTROPHILS # (AUTO) 3.1 K/uL (1.8-7.7); NEUTROPHILS % (AUTO) 52.1 % (42.2-75.2); PLATELET COUNT (AUTO) 187 K/uL (140-450); RED BLOOD CELL COUNT(AUTO) 4.83 MIL/uL (4.20-6.10); RED CELL DISTRIBUTION WIDTH 14.3 % (11.6-13.7); WHITE BLOOD COUNT (AUTO) 5.9 K/uL (4.8-10.8)
[2018-04-19] MEDS ORDERED: NACL 0.9% 1,000 ML IV ONE (09:15)
[2018-04-19 09:22] LABS: ALBUMIN 2.9 g/dL (3.4-5.0); ANION GAP 16.7 (8-16); ASPARTATE AMINOTRANSFERASE 28 U/L (15-37); CARBON DIOXIDE 22.6 mmol/L (21-32); CHLORIDE 99 mmol/L (98-107); CREATININE 0.8 mg/dL (0.7-1.3); GLUCOSE 104 mg/dL (74-106); POTASSIUM 3.3 mmol/L (3.5-5.1); SODIUM SERUM 135 mmol/L (136-145); TOTAL BILIRUBIN 0.6 mg/dL (0.0-1.0); UREA NITROGEN, BLOOD 7 mg/dL (7-18)
--- NOTE | 2018-04-19 09:57 | NUR ---
PT. RESTING COMFORTABLY IN BED, VSS. HOB ELEVATED AT 90 DEGREES. IV SITE INTACT, NO SWELLING OR REDNESS NOTED. WARM TO TOUCH. WILL CONTINUE TO MONITOR. AT BEDSIDE AT THIS TIME.
--- NOTE | 2018-04-19 11:00 | NUR ---
PT. RESTING COMFORTABLY IN BED, RR EVEN AND UNLABORED. VSS. HOB ELEVATED 90 DEGREES. WILL CONTINUE TO MONITOR. AT BEDSIDE.
--- NOTE | 2018-04-19 12:07 | NUR ---
TO CONTACT DAUGHTER IF ANYTHING NEEDED , NUMBER GIVEN MY AMADA VALENCIA: BERNARDINO VALENCIA [phone]
--- NOTE | 2018-04-19 13:19 | NUR ---
PT. RESTING COMFORTABLY IN BED, RR EVEN AND UNLABORED. PT. STATES " I AM OKAY IM FEELING GOOD". WILL CONTINUE TO MONITOR.
--- NOTE | 2018-04-19 14:19 | NUR ---
PT. PROVIDED WITH A LUNCH TRAY, EATING COMFORTABLY IN BED. VSS. WILL CONTINUE TO MONITOR.
--- NOTE | 2018-04-19 15:13 | NUR ---
PT. REPORT GIVEN TO ANNIE POLANCO AT [facility]. AWAITING TRANSPORT AT THIS TIME.
[2018-04-19 15:53] VITALS: BP 99/72
--- NOTE | 2018-04-19 15:53 | NUR ---
Patient to be transferred to [facility] . Is being transferred due to CHEST PAIN, SOB . Receiving facility has accepting physician and available space. ER physician has signed transfer form. Patient or responsible constitution party has agreed to transfer and signed form. Patient belongings inventoried and will be sent with patient. Copy of nursing notes, lab reports, EKG, Physicians Orders and X-rays to be sent with patient. Report called to ANNIE POLANCO at receiving facility. [facility] ambulance service has been called for transfer. ETA is 30MIN . GAVE REPORT TO [place] OF TRANSPORT. ALL BELONGINGS TAKEN WITH PATIENT
== END 2018-04-19 15:53 | disposition short-term general hospital (02) ==
LOC: MED 08:10
DX: R07.9 Chest pain, unspecified (principal); R09.02 Hypoxemia; E11.9 Type 2 diabetes mellitus without complications; I10 Essential (primary) hypertension; F17.200 Nicotine dependence, unspecified, uncomplicated; Z79.84 Long term (current) use of oral hypoglycemic drugs; Z79.899 Other long term (current) drug therapy
CPT/HCPCS: 36415; 71045; 71275; 80053; 83880; 84484; 85025; 85379; 93005; 99285; J7030; Q0092; Q9967